=== PATIENT | male | born 1970 | race Caucasian/White ===

== ENCOUNTER 2019-09-14 18:43 | Emergency (ER) | payer SELFPAY ==
[~2019-09-14] VITALS: Ht 170.2 cm; Wt 74.8 kg
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
== END 2019-09-14 19:04 | disposition home or self-care (01) ==
LOC: ER 18:50
DX: S31.21XA Laceration without foreign body of penis, initial encounter (principal); W26.8XXA Contact with other sharp object(s), not elsewhere classified, initial encounter; Y92.008 Other place in unspecified non-institutional (private) residence as the place of occurrence of the external cause; Z87.891 Personal history of nicotine dependence; Z85.89 Personal history of malignant neoplasm of other organs and systems
CPT/HCPCS: 99283

== ENCOUNTER → 2020-06-12 | Emergency (ER) | payer OTHER ==
[~2020-06-12] VITALS: Ht 170.2 cm; Wt 74.8 kg
== END | disposition left against medical advice (07) ==
LOC: ER 06:43
DX: S81.802A Unspecified open wound, left lower leg, initial encounter (principal); W34.00XA Accidental discharge from unspecified firearms or gun, initial encounter